=== PATIENT | female | born 1935 | race Caucasian/White ===

== ENCOUNTER 2017-08-07 19:40 | Emergency (ER) | payer OTHER ==
[~2017-08-07] VITALS: Ht 152.4 cm; Wt 56.2 kg
[~2017-08-07 19:40] MED LIST: ASA81 MG; ECOTRIN81 MG; ENALAPRIL MALEA20 MG; GLIPIZIDE10 MG PO; SYNTHROID50 MCG; ZOCOR40 MG; [UNRECOGNIZED DRUG - OTHER]
== END 2017-08-08 03:21 | disposition home or self-care (01) ==
LOC: ER 19:40
DX: K62.5 Hemorrhage of anus and rectum (principal)